=== PATIENT | female | born 1955 | race African-American/Black ===

== ENCOUNTER 2024-07-02 05:31 | Day surgery (SDC) | payer OTHER ==
[2024-06-30 09:58] VITALS: BMI 33.5
[2024-07-02 10:01] LABS: BASO % 0.5 % (0-2.0); EOS % 0.1 % (0-4.5); HEMATOCRIT 40.9 % (32.4-45.2); HEMOGLOBIN 13.3 GM/dL (10.7-15.3); LYMPH % 16.1 % (8-40); MCH 25.4 pg (25.7-33.7); MCHC 32.6 g/dl (32.0-36.0); MEAN CELL VOLUME 78.2 fl (80-96); MEAN PLT VOLUME 8.4 fl (7.5-11.1); MONO % 0.9 % (3.8-10.2); NEUT % 82.4 % (42.8-82.8); PLATELET COUNT 308 10^3/uL (134-434); RBC 5.24 M/mm3 (3.60-5.2); RDW 15.8 % (11.6-15.6); WHITE BLOOD COUNT 4.6 K/mm3 (4.0-10.0)
[2024-07-02 10:06] LABS: INR 1.07 (0.83-1.09); PROTHROMBIN TIME (PATIENT) 12.1 SEC (9.7-13.0)
[2024-07-02 10:16] LABS: POTASSIUM 3.8 mmol/L (3.5-5.1)
[2024-07-02 10:18] LABS: ALBUMIN 3.8 g/dl (3.4-5.0); BLOOD UREA NITROGEN 16.4 mg/dL (7-18); MAGNESIUM 2.2 mg/dL (1.8-2.4)
[2024-07-02 10:21] LABS: CREATININE 1.2 mg/dL (0.55-1.3)
[2024-07-02 10:23] LABS: BILIRUBIN,TOTAL 0.4 mg/dL (0.2-1); TOT PROT 8.3 g/dl (6.4-8.2)
[2024-07-02] MEDS: SODIUM CHLORIDE 500 ML IV SCH (11:10)
[2024-07-02] MEDS ORDERED: FENTANYL CITRATE/PF 50 MCG/ML VIAL ONE ×2 (11:11→11:41)
[2024-07-02] MEDS ORDERED: MIDAZOLAM HCL 2 MG/2 ML SINGLE DOSE VIAL ONE (11:11)
[2024-07-02] MEDS: FENTANYL CITRATE/PF 50 MCG/ML VIAL IVPUSH ONE ×2 (11:34→11:44)
[2024-07-02] MEDS: MIDAZOLAM HCL 2 MG/2 ML SINGLE DOSE VIAL IVPUSH ONE ×2 (11:34→11:44)
[2024-07-02] MEDS: FOSAPREPITANT DIMEGLUMINE 150 MG in SODIUM CHLORIDE 145 ML IVPB ONE (13:43)
[2024-07-02] MEDS: SODIUM CHLORIDE 250 ML IV ONE (13:43)
[2024-07-02] MEDS: PALONOSETRON HCL 0.25 MG/5 ML VIAL IVPUSH ONE (14:09)
[2024-07-02] MEDS: DEXAMETHASONE SODIUM PHOSPHATE 10 MG, DIPHENHYDRAMINE 25 MG in DEXTROSE 5%-WATER - 100 ML IVPB ONE (14:12)
[2024-07-02] MEDS: FAMOTIDINE 20 MG/50 ML IVPB 20 MG/50 ML MG IVPB ONE (14:49)
[2024-07-02] MEDS: SODIUM CHLORIDE IVPB ONE ×2 (15:21→20:40)
[2024-07-02] MEDS: PACLITAXEL IVPB ONE (15:21)
[2024-07-02] MEDS: ACETAMINOPHEN 325 MG TABLET (FP) PO ONE (15:34)
[2024-07-02] MEDS: DEXAMETHASONE SOD PHOSPHATE 20 MG/5 ML VIAL IVPUSH ONE (16:25)
[2024-07-02] MEDS ORDERED: PORTA CATH FLUSH 10 ML IVPUSH PRN (18:56)
[2024-07-02] MEDS: INSULIN (NOVOLOG) ASPART 100 UNITS/ML 10ML VIAL SQ ONE (18:57)
[2024-07-02] MEDS: CARBOPLATIN IVPB ONE (20:40)
[2024-07-02 21:18] VITALS: BP 118/78; PULSE 84; RESP 18; TEMP 97.6
== END 2024-07-02 22:11 | disposition home or self-care (01) ==
LOC: JRADIR 05:31
PROVIDERS: ATTEND Internal Medicine Hematology & Oncology
PROC: 3E04305 Introduction of Other Antineoplastic into Central Vein, Percutaneous Approach (ICD-10-PCS; principal; 2024-07-02)
PROC: 3E043GC Introduction of Other Therapeutic Substance into Central Vein, Percutaneous Approach (ICD-10-PCS; 2024-07-02)
PROC: 0JH63WZ Insertion of Totally Implantable Vascular Access Device into Chest Subcutaneous Tissue and Fascia, Percutaneous Approach (ICD-10-PCS; 2024-07-02)
PROC: 02HV33Z Insertion of Infusion Device into Superior Vena Cava, Percutaneous Approach (ICD-10-PCS; 2024-07-02)
PROC: B518ZZA Fluoroscopy of Superior Vena Cava, Guidance (ICD-10-PCS; 2024-07-02)
DX: Z51.11 Encounter for antineoplastic chemotherapy (principal); C54.1 Malignant neoplasm of endometrium
CPT/HCPCS: 36561; 96367; 96375; 96413; 96415; C1788; 36415; 80053; 82150; 82962; 83690; 83735; 84439; 84443; 85025; 85610; 86705; 86707; 87350; 87517; J1453

== ENCOUNTER 2024-07-03 12:11 | Day surgery (SDC) | payer OTHER ==
[2024-07-03] MEDS: SODIUM CHLORIDE 500 ML IV ONE (12:35)
[2024-07-03 13:45] VITALS: RESP 18; TEMP 98.1
[2024-07-03] MEDS: PEMBROLIZUMAB 200 MG in SODIUM CHLORIDE 50 ML IV ONE (14:13)
[2024-07-03 15:30] VITALS: BP 126/82; PULSE 93
[2024-07-03] MEDS: PORTA CATH FLUSH 10 ML IVPUSH PRN (15:30)
== END 2024-07-03 16:00 | disposition home or self-care (01) ==
LOC: JONCCHEMO 12:11
PROVIDERS: ATTEND Internal Medicine Hematology & Oncology
DX: Z51.11 Encounter for antineoplastic chemotherapy (principal); C55 Malignant neoplasm of uterus, part unspecified
CPT/HCPCS: 96413; J9271

== ENCOUNTER 2024-07-17 13:30 | Day surgery (SDC) | payer OTHER ==
[2024-07-17] MEDS: TBO-FILGRASTIM 480 MCG/0.8 ML DISP.SYRIN SQ ONE (13:28)
[2024-07-17 17:31] VITALS: BP 109/64; PULSE 63; RESP 20; TEMP 98.2
== END 2024-07-17 13:40 | disposition home or self-care (01) ==
LOC: JONCCHEMO 13:30 → J7W 13:33 → JONCCHEMO 13:40
PROVIDERS: ATTEND Internal Medicine Hematology & Oncology
PROC: 3E013GC Introduction of Other Therapeutic Substance into Subcutaneous Tissue, Percutaneous Approach (ICD-10-PCS; principal; 2024-07-17)
DX: C55 Malignant neoplasm of uterus, part unspecified (principal); Z76.89 Persons encountering health services in other specified circumstances
CPT/HCPCS: 96372; J1447

== ENCOUNTER 2024-07-21 11:07 | Day surgery (SDC) | payer OTHER ==
[2024-07-21 10:12] LABS: HEMOGLOBIN 12.7 GM/dL (10.7-15.3); MCH 24.6 pg (25.7-33.7); MCHC 31.1 g/dl (32.0-36.0); MEAN CELL VOLUME 79.1 fl (80-96); MEAN PLT VOLUME 7.7 fl (7.5-11.1); PLATELET COUNT 257 10^3/uL (134-434); RBC 5.18 M/mm3 (3.60-5.2); RDW 16.3 % (11.6-15.6); WHITE BLOOD COUNT 11.1 K/mm3 (4.0-10.0)
[2024-07-21 10:32] LABS: CHLORIDE 108 mmol/L (98-107); POTASSIUM 3.7 mmol/L (3.5-5.1); SODIUM 141 mmol/L (136-145)
[2024-07-21 10:34] LABS: ALBUMIN 3.5 g/dl (3.4-5.0); CALCIUM 9.2 mg/dL (8.5-10.1)
[2024-07-21 10:35] LABS: AMYLASE 51 U/L (25-115); ANION GAP 8 mmol/L (4-13); BLOOD UREA NITROGEN 13.9 mg/dL (7-18); CO2 24 mmol/L (21-32); GLUCOSE,RANDOM 169 mg/dL (74-106); MAGNESIUM 2.2 mg/dL (1.8-2.4)
[2024-07-21 10:37] LABS: SGOT/AST 13 U/L (15-37); SGPT/ALT 18 U/L (13-61)
[2024-07-21 10:38] LABS: CREATININE 1.1 mg/dL (0.55-1.3)
[2024-07-21 10:39] LABS: BILIRUBIN,TOTAL 0.3 mg/dL (0.2-1); TOT PROT 7.4 g/dl (6.4-8.2)
[2024-07-21 10:40] LABS: ALK PHOS 121 U/L (45-117)
[2024-07-21 11:13] LABS: ANISOCYTOSIS 0; HELMET CELLS 0; HOWELL-JOLLY BODIES 0; MACROCYTOSIS 0; OVALOCYTE 0; ROULEAU 0; SICKELED CELLS 0; TARGET CELLS 0; TEAR DROP CELLS 0; TOXIC GRANULATION 0
[2024-07-21] MEDS: SODIUM CHLORIDE 250 ML IV ONE (11:52)
[2024-07-21] MEDS: FOSAPREPITANT DIMEGLUMINE 150 MG in SODIUM CHLORIDE 145 ML IVPB ONE (11:53)
[2024-07-21] MEDS: DEXAMETHASONE SODIUM PHOSPHATE 10 MG, DIPHENHYDRAMINE 25 MG in SODIUM CHLORIDE 100 ML IVPB ONE (12:34)
[2024-07-21] MEDS: PALONOSETRON HCL 0.25 MG/5 ML VIAL IVPUSH ONE (12:34)
[2024-07-21] MEDS: FAMOTIDINE 20 MG/50 ML IVPB 20 MG/50 ML MG IVPB ONE (13:15)
[2024-07-21] MEDS: INSULIN (NOVOLOG) ASPART 100 UNITS/ML 10ML VIAL SQ ONE (13:15)
[2024-07-21] MEDS: PACLITAXEL IVPB ONE (14:06)
[2024-07-21] MEDS: SODIUM CHLORIDE IVPB ONE ×2 (14:06→17:27)
[2024-07-21 16:45] VITALS: TEMP 98
[2024-07-21] MEDS: CARBOPLATIN IVPB ONE (17:27)
[2024-07-21] MEDS: PORTA CATH FLUSH 10 ML IVPUSH PRN (18:05)
[2024-07-21 18:14] VITALS: BP 140/94; PULSE 100; RESP 16
== END 2024-07-21 18:14 | disposition home or self-care (01) ==
LOC: JONCCHEMO 11:07 → J7W 11:08 → JONCCHEMO 18:14
PROVIDERS: ATTEND Internal Medicine Hematology & Oncology
DX: Z51.11 Encounter for antineoplastic chemotherapy (principal); C55 Malignant neoplasm of uterus, part unspecified
CPT/HCPCS: 36415; 80053; 82150; 82533; 83690; 83735; 84439; 84443; 85025; 86705; 87340; 87517; 96367; 96375; 96413; 96415; 96417; J1453

== ENCOUNTER 2024-07-22 13:00 | Day surgery (SDC) | payer OTHER ==
[2024-07-22] MEDS: SODIUM CHLORIDE 500 ML IV ONE (13:33)
[2024-07-22] MEDS: PEMBROLIZUMAB 200 MG in SODIUM CHLORIDE 100 ML IV ONE (14:08)
[2024-07-22 19:13] VITALS: RESP 20; TEMP 97.9
[2024-07-22] MEDS ORDERED: PORTA CATH FLUSH 10 ML IVPUSH PRN (19:18)
[2024-07-22 19:19] VITALS: BP 144/93; PULSE 81
== END 2024-07-22 15:35 | disposition home or self-care (01) ==
LOC: JONCCHEMO 13:00 → J7W 13:00 → JONCCHEMO 15:35
PROVIDERS: ATTEND Internal Medicine Hematology & Oncology
DX: Z51.11 Encounter for antineoplastic chemotherapy (principal); C55 Malignant neoplasm of uterus, part unspecified
CPT/HCPCS: 96413; J9271

== ENCOUNTER 2024-08-06 10:58 | Day surgery (SDC) | payer OTHER ==
[2024-08-06] MEDS: TBO-FILGRASTIM 480 MCG/0.8 ML DISP.SYRIN SQ ONE (11:00)
[2024-08-06 11:18] VITALS: BP 129/88; PULSE 111; RESP 20; TEMP 98.5
== END 2024-08-06 11:10 | disposition home or self-care (01) ==
LOC: JONCNONCHE 10:58 → J7W 11:01 → JONCNONCHE 11:10
PROVIDERS: ATTEND Internal Medicine Hematology & Oncology
PROC: 3E013GC Introduction of Other Therapeutic Substance into Subcutaneous Tissue, Percutaneous Approach (ICD-10-PCS; principal; 2024-08-06)
DX: C54.1 Malignant neoplasm of endometrium (principal); Z76.89 Persons encountering health services in other specified circumstances
CPT/HCPCS: 96372; J1447

== ENCOUNTER 2024-08-07 11:00 | Day surgery (SDC) | payer OTHER ==
[~2024-08-07 11:00] MED LIST: TBO-FILGRASTIM 480 MCG/0.8 ML DISP.SYRIN SQ ONE
[2024-08-07] MEDS: TBO-FILGRASTIM 480 MCG/0.8 ML DISP.SYRIN SQ ONE (11:01)
[2024-08-07 15:39] VITALS: BP 150/84; PULSE 79; RESP 20; TEMP 98
== END 2024-08-07 11:10 | disposition home or self-care (01) ==
LOC: JONCNONCHE 11:00 → J7W 11:02 → JONCNONCHE 11:10
PROVIDERS: ATTEND Internal Medicine Hematology & Oncology
PROC: 3E013GC Introduction of Other Therapeutic Substance into Subcutaneous Tissue, Percutaneous Approach (ICD-10-PCS; principal; 2024-08-07)
DX: C54.1 Malignant neoplasm of endometrium (principal); D70.1 Agranulocytosis secondary to cancer chemotherapy
CPT/HCPCS: 96372; J1447

== ENCOUNTER 2024-08-10 12:00 | Day surgery (SDC) | payer OTHER ==
[2024-08-10] MEDS: TBO-FILGRASTIM 480 MCG/0.8 ML DISP.SYRIN SQ ONE (12:12)
[2024-08-10 13:23] VITALS: BP 141/91; PULSE 96; RESP 20; TEMP 98.8
== END 2024-08-10 12:25 | disposition home or self-care (01) ==
LOC: JONCCHEMO 12:00 → J7W 12:03 → JONCCHEMO 12:25
PROVIDERS: ATTEND Internal Medicine Hematology & Oncology
PROC: 3E013GC Introduction of Other Therapeutic Substance into Subcutaneous Tissue, Percutaneous Approach (ICD-10-PCS; principal; 2024-08-10)
DX: C54.1 Malignant neoplasm of endometrium (principal); D70.1 Agranulocytosis secondary to cancer chemotherapy
CPT/HCPCS: 96372; J1447

== ENCOUNTER 2024-08-12 10:45 | Day surgery (SDC) | payer OTHER ==
[2024-08-12 09:33] LABS: HEMATOCRIT 40.5 % (32.4-45.2); HEMOGLOBIN 12.6 GM/dL (10.7-15.3); MCH 24.4 pg (25.7-33.7); MCHC 31.2 g/dl (32.0-36.0); MEAN CELL VOLUME 78.3 fl (80-96); MEAN PLT VOLUME 8.2 fl (7.5-11.1); PLATELET COUNT 282 10^3/uL (134-434); RBC 5.17 M/mm3 (3.60-5.2); RDW 17.1 % (11.6-15.6); WHITE BLOOD COUNT 21.8 K/mm3 (4.0-10.0)
[2024-08-12 09:54] LABS: CHLORIDE 107 mmol/L (98-107); POTASSIUM 3.9 mmol/L (3.5-5.1); SODIUM 140 mmol/L (136-145)
[2024-08-12 09:56] LABS: ALBUMIN 3.7 g/dl (3.4-5.0); ANION GAP 7 mmol/L (4-13); CALCIUM 9.5 mg/dL (8.5-10.1); CO2 26 mmol/L (21-32); GLUCOSE,RANDOM 208 mg/dL (74-106); MAGNESIUM 1.8 mg/dL (1.8-2.4)
[2024-08-12 09:57] LABS: BLOOD UREA NITROGEN 14.6 mg/dL (7-18)
[2024-08-12 10:00] LABS: CREATININE 1.2 mg/dL (0.55-1.3); SGOT/AST 16 U/L (15-37); SGPT/ALT 20 U/L (13-61)
[2024-08-12 10:01] LABS: BILIRUBIN,TOTAL 0.3 mg/dL (0.2-1); TOT PROT 7.7 g/dl (6.4-8.2)
[2024-08-12 10:02] LABS: ALK PHOS 164 U/L (45-117)
[2024-08-12 10:46] LABS: ANISOCYTOSIS 0; MACROCYTOSIS 0
[2024-08-12] MEDS: SODIUM CHLORIDE 250 ML IV ONE (11:00)
[2024-08-12] MEDS: FOSAPREPITANT DIMEGLUMINE 150 MG in SODIUM CHLORIDE 145 ML IVPB ONE (11:40)
[2024-08-12] MEDS: DEXAMETHASONE SODIUM PHOSPHATE 10 MG, DIPHENHYDRAMINE 25 MG in SODIUM CHLORIDE 100 ML IVPB ONE (12:15)
[2024-08-12] MEDS: FAMOTIDINE 20 MG/50 ML IVPB 20 MG/50 ML MG IVPB ONE (12:50)
[2024-08-12] MEDS: PALONOSETRON HCL 0.25 MG/5 ML VIAL IVPUSH ONE (12:50)
[2024-08-12] MEDS: SODIUM CHLORIDE 0.9% IVPB ONE (13:18)
[2024-08-12] MEDS: PACLITAXEL IVPB ONE (13:18)
[2024-08-12] MEDS ORDERED: INSULIN ASPART SLIDING SCALE (NOVOLOG) 1 VIAL SQ ONE ×2 (14:21→14:26)
[2024-08-12] MEDS: INSULIN (NOVOLOG) ASPART 100 UNITS/ML 10ML VIAL SQ ONE (14:22)
[2024-08-12] MEDS: SODIUM CHLORIDE IVPB ONE (16:29)
[2024-08-12] MEDS: CARBOPLATIN IVPB ONE (16:29)
[2024-08-12 16:37] VITALS: TEMP 98.7
[2024-08-12 17:31] VITALS: BP 136/88; PULSE 98; RESP 20
[2024-08-12] MEDS: PORTA CATH FLUSH 10 ML IVPUSH PRN (17:32)
== END 2024-08-12 18:00 | disposition home or self-care (01) ==
LOC: JONCCHEMO 10:45 → J7W 10:47 → JONCCHEMO 18:00
PROVIDERS: ATTEND Internal Medicine Hematology & Oncology
DX: Z51.11 Encounter for antineoplastic chemotherapy (principal); C54.1 Malignant neoplasm of endometrium; D70.1 Agranulocytosis secondary to cancer chemotherapy
CPT/HCPCS: 36415; 80053; 82150; 82533; 83690; 83735; 84439; 84443; 85025; 96367; 96375; 96413; 96415; 96417; J1453

== ENCOUNTER 2024-08-13 10:29 | Day surgery (SDC) | payer OTHER ==
[2024-08-13] MEDS: SODIUM CHLORIDE 500 ML IV ONE (11:05)
[2024-08-13] MEDS: PEMBROLIZUMAB 200 MG in SODIUM CHLORIDE 50 ML IV ONE (11:42)
[2024-08-13] MEDS: PORTA CATH FLUSH 10 ML IVPUSH PRN (13:35)
[2024-08-13 16:12] VITALS: TEMP 97.8
[2024-08-13 16:18] VITALS: BP 130/91; PULSE 104; RESP 18
== END 2024-08-13 14:00 | disposition home or self-care (01) ==
LOC: JONCCHEMO 10:29 → J7W 10:31 → JONCCHEMO 14:00
PROVIDERS: ATTEND Internal Medicine Hematology & Oncology
DX: Z51.11 Encounter for antineoplastic chemotherapy (principal); C54.1 Malignant neoplasm of endometrium
CPT/HCPCS: 96413; J9271

== ENCOUNTER 2024-08-14 11:25 | Day surgery (SDC) | payer OTHER ==
[2024-08-14] MEDS: TBO-FILGRASTIM 480 MCG/0.8 ML DISP.SYRIN SQ ONE (11:39)
[2024-08-14 18:20] VITALS: BP 147/93; PULSE 102; RESP 16; TEMP 98
== END 2024-08-14 11:50 | disposition home or self-care (01) ==
LOC: J7W 11:25 → JONCCHEMO 11:25
PROVIDERS: ATTEND Internal Medicine Hematology & Oncology
PROC: 3E013GC Introduction of Other Therapeutic Substance into Subcutaneous Tissue, Percutaneous Approach (ICD-10-PCS; principal; 2024-08-14)
DX: C54.1 Malignant neoplasm of endometrium (principal); Z76.89 Persons encountering health services in other specified circumstances
CPT/HCPCS: 96372; J1447

== ENCOUNTER 2024-08-17 11:02 | Day surgery (SDC) | payer OTHER ==
[2024-08-17] MEDS: TBO-FILGRASTIM 480 MCG/0.8 ML DISP.SYRIN SQ ONE (11:03)
[2024-08-17 15:24] VITALS: BP 125/81; PULSE 111; RESP 20; TEMP 98.9
== END 2024-08-17 11:20 | disposition home or self-care (01) ==
LOC: JONCCHEMO 11:02 → J7W 11:03 → JONCCHEMO 11:20
PROVIDERS: ATTEND Internal Medicine Hematology & Oncology
PROC: 3E013GC Introduction of Other Therapeutic Substance into Subcutaneous Tissue, Percutaneous Approach (ICD-10-PCS; principal; 2024-08-17)
DX: C54.1 Malignant neoplasm of endometrium (principal); Z76.89 Persons encountering health services in other specified circumstances
CPT/HCPCS: 96372; J1447

== ENCOUNTER 2024-08-18 11:25 | Day surgery (SDC) | payer OTHER ==
[2024-08-18] MEDS: TBO-FILGRASTIM 480 MCG/0.8 ML DISP.SYRIN SQ ONE (11:36)
[2024-08-18 17:25] VITALS: BP 108/72; PULSE 113; RESP 20; TEMP 98.4
== END 2024-08-18 11:50 | disposition home or self-care (01) ==
LOC: JONCCHEMO 11:25 → J7W 11:27 → JONCCHEMO 11:50
PROVIDERS: ATTEND Internal Medicine Hematology & Oncology
PROC: 3E013GC Introduction of Other Therapeutic Substance into Subcutaneous Tissue, Percutaneous Approach (ICD-10-PCS; principal; 2024-08-18)
DX: C54.1 Malignant neoplasm of endometrium (principal); Z76.89 Persons encountering health services in other specified circumstances
CPT/HCPCS: 96372; J1447

== ENCOUNTER 2024-08-31 09:50 | Day surgery (SDC) | payer OTHER ==
[2024-08-31 10:21] LABS: BASO % 0.4 % (0-2.0); EOS % 0.1 % (0-4.5); HEMOGLOBIN 12.5 GM/dL (10.7-15.3); LYMPH % 12.5 % (8-40); MCH 24.9 pg (25.7-33.7); MEAN CELL VOLUME 77.7 fl (80-96); MEAN PLT VOLUME 8.2 fl (7.5-11.1); MONO % 0.8 % (3.8-10.2); NEUT % 86.2 % (42.8-82.8); PLATELET COUNT 338 10^3/uL (134-434); RBC 5.02 M/mm3 (3.60-5.2); RDW 19.5 % (11.6-15.6); WHITE BLOOD COUNT 6.1 K/mm3 (4.0-10.0)
[2024-08-31 10:46] LABS: CHLORIDE 108 mmol/L (98-107); POTASSIUM 3.8 mmol/L (3.5-5.1); SODIUM 141 mmol/L (136-145)
[2024-08-31 10:48] LABS: CALCIUM 9.8 mg/dL (8.5-10.1); GLUCOSE,RANDOM 197 mg/dL (74-106)
[2024-08-31 10:49] LABS: ALBUMIN 3.5 g/dl (3.4-5.0); ANION GAP 8 mmol/L (4-13); BLOOD UREA NITROGEN 15.3 mg/dL (7-18); CO2 25 mmol/L (21-32)
[2024-08-31 10:50] LABS: AMYLASE 57 U/L (25-115)
[2024-08-31 10:51] LABS: SGPT/ALT 16 U/L (13-61)
[2024-08-31 10:52] LABS: CREATININE 1.2 mg/dL (0.55-1.3); SGOT/AST 10 U/L (15-37)
[2024-08-31 10:53] LABS: BILIRUBIN,TOTAL 0.3 mg/dL (0.2-1); TOT PROT 7.6 g/dl (6.4-8.2)
[2024-08-31 10:54] LABS: ALK PHOS 119 U/L (45-117)
[2024-08-31] MEDS: SODIUM CHLORIDE 250 ML IV ONE (11:40)
[2024-08-31] MEDS: FOSAPREPITANT DIMEGLUMINE 150 MG in SODIUM CHLORIDE 145 ML IVPB ONE (11:54)
[2024-08-31] MEDS: PALONOSETRON HCL 0.25 MG/5 ML VIAL IVPUSH ONE (12:35)
[2024-08-31] MEDS: DEXAMETHASONE SODIUM PHOSPHATE 10 MG, DIPHENHYDRAMINE 25 MG in SODIUM CHLORIDE 100 ML IVPB ONE (12:38)
[2024-08-31] MEDS: INSULIN (NOVOLOG) ASPART 100 UNITS/ML 10ML VIAL SQ ONE (12:39)
[2024-08-31] MEDS: FAMOTIDINE 20 MG/50 ML IVPB 20 MG/50 ML MG IVPB ONE (13:10)
[2024-08-31] MEDS: PACLITAXEL 300 MG in SODIUM CHLORIDE 500 ML IVPB ONE (13:45)
[2024-08-31 15:33] VITALS: RESP 20; TEMP 98.4
[2024-08-31] MEDS: SODIUM CHLORIDE IVPB ONE (16:58)
[2024-08-31] MEDS: CARBOPLATIN IVPB ONE (16:58)
[2024-08-31 17:45] VITALS: BP 147/92; PULSE 95
[2024-08-31] MEDS: PORTA CATH FLUSH 10 ML IVPUSH PRN ×2 (17:46)
== END 2024-08-31 18:18 | disposition home or self-care (01) ==
LOC: JONCCHEMO 09:50 → J7W 09:51 → JONCCHEMO 18:18
PROVIDERS: ATTEND Internal Medicine Hematology & Oncology
DX: Z51.11 Encounter for antineoplastic chemotherapy (principal); C54.1 Malignant neoplasm of endometrium
CPT/HCPCS: 36415; 80053; 82150; 82533; 83690; 83735; 84439; 84443; 85025; 96367; 96375; 96413; 96417; J1453

== ENCOUNTER 2024-09-01 10:57 | Day surgery (SDC) | payer OTHER ==
[2024-09-01] MEDS: SODIUM CHLORIDE 500 ML IV ONE (11:05)
[2024-09-01] MEDS: PEMBROLIZUMAB 200 MG in SODIUM CHLORIDE 100 ML IVPB ONE (12:16)
[2024-09-01 12:24] VITALS: TEMP 98.3
[2024-09-01] MEDS: PORTA CATH FLUSH 10 ML IVPUSH PRN (12:50)
[2024-09-01 14:02] VITALS: BP 120/91; PULSE 106; RESP 20
== END 2024-09-01 13:00 | disposition home or self-care (01) ==
LOC: JONCCHEMO 10:57 → J7W 11:00 → JONCCHEMO 13:00
PROVIDERS: ATTEND Internal Medicine Hematology & Oncology
DX: Z51.11 Encounter for antineoplastic chemotherapy (principal); C54.1 Malignant neoplasm of endometrium
CPT/HCPCS: 96413; J9271

== ENCOUNTER 2024-10-14 11:54 | Day surgery (SDC) | payer OTHER ==
[2024-10-14 11:36] LABS: BASO % 0.5 % (0-2.0); HEMATOCRIT 39.4 % (32.4-45.2); HEMOGLOBIN 12.8 GM/dL (10.7-15.3); LYMPH % 13.8 % (8-40); MCHC 32.5 g/dl (32.0-36.0); MEAN PLT VOLUME 8.2 fl (7.5-11.1); MONO % 1.2 % (3.8-10.2); NEUT % 84.5 % (42.8-82.8); PLATELET COUNT 293 10^3/uL (134-434); RBC 4.92 M/mm3 (3.60-5.2); RDW 20.5 % (11.6-15.6); WHITE BLOOD COUNT 7.4 K/mm3 (4.0-10.0)
[2024-10-14 11:59] LABS: CHLORIDE 105 mmol/L (98-107); POTASSIUM 3.5 mmol/L (3.5-5.1); SODIUM 141 mmol/L (136-145)
[2024-10-14 12:02] LABS: ALBUMIN 3.7 g/dl (3.4-5.0); ANION GAP 13 mmol/L (4-13); BLOOD UREA NITROGEN 13.4 mg/dL (7-18); CALCIUM 9.7 mg/dL (8.5-10.1); CO2 22 mmol/L (21-32); GLUCOSE,RANDOM 185 mg/dL (74-106); MAGNESIUM 1.8 mg/dL (1.8-2.4)
[2024-10-14 12:04] LABS: SGOT/AST 18 U/L (15-37); SGPT/ALT 25 U/L (13-61)
[2024-10-14 12:05] LABS: CREATININE 1.2 mg/dL (0.55-1.3)
[2024-10-14 12:06] LABS: BILIRUBIN,TOTAL 0.3 mg/dL (0.2-1); TOT PROT 7.4 g/dl (6.4-8.2)
[2024-10-14 12:07] LABS: ALK PHOS 102 U/L (45-117)
[2024-10-14] MEDS: FOSAPREPITANT DIMEGLUMINE 150 MG in SODIUM CHLORIDE 145 ML IVPB ONE (12:50)
[2024-10-14] MEDS: SODIUM CHLORIDE 250 ML IV ONE (12:50)
[2024-10-14 13:05] LABS: ANISOCYTOSIS 1+
[2024-10-14] MEDS: PALONOSETRON HCL 0.25 MG/5 ML VIAL IVPUSH ONE (13:22)
[2024-10-14] MEDS: DEXAMETHASONE SODIUM PHOSPHATE 10 MG, DIPHENHYDRAMINE 25 MG in SODIUM CHLORIDE 100 ML IVPB ONE (13:22)
[2024-10-14] MEDS: FAMOTIDINE 20 MG/50 ML IVPB 20 MG/50 ML MG IVPB ONE (14:05)
[2024-10-14] MEDS ORDERED: INSULIN ASPART SLIDING SCALE (NOVOLOG) 1 VIAL SQ ONE (14:06)
[2024-10-14] MEDS: INSULIN (NOVOLOG) ASPART 100 UNITS/ML 10ML VIAL SQ ONE (14:09)
[2024-10-14] MEDS: PACLITAXEL 300 MG in SODIUM CHLORIDE 500 ML IVPB ONE (14:23)
[2024-10-14 16:56] VITALS: RESP 20; TEMP 98.1
[2024-10-14] MEDS: CARBOPLATIN IVPB ONE (17:30)
[2024-10-14] MEDS: SODIUM CHLORIDE IVPB ONE (17:30)
[2024-10-14] MEDS: PORTA CATH FLUSH 10 ML IVPUSH PRN (17:31)
[2024-10-14 18:19] VITALS: BP 131/84; PULSE 103
== END 2024-10-14 18:30 | disposition home or self-care (01) ==
LOC: JONCCHEMO 11:54
PROVIDERS: ATTEND Internal Medicine Hematology & Oncology
DX: Z51.11 Encounter for antineoplastic chemotherapy (principal); C54.1 Malignant neoplasm of endometrium
CPT/HCPCS: 36415; 80053; 82150; 82533; 83690; 83735; 84439; 84443; 85025; 96367; 96375; 96413; 96415; 96417; J1453

== ENCOUNTER 2024-10-15 10:23 | Day surgery (SDC) | payer OTHER ==
[2024-10-15] MEDS: SODIUM CHLORIDE 500 ML IV ONE (10:49)
[2024-10-15] MEDS: PEMBROLIZUMAB 200 MG in SODIUM CHLORIDE 100 ML IVPB ONE (11:11)
[2024-10-15] MEDS: PORTA CATH FLUSH 10 ML IVPUSH PRN (12:50)
[2024-10-15 16:11] VITALS: RESP 20; TEMP 97.6
[2024-10-15 16:18] VITALS: BP 125/77; PULSE 98
== END 2024-10-15 13:00 | disposition home or self-care (01) ==
LOC: JONCCHEMO 10:23 → J7W 10:24 → JONCCHEMO 13:00
PROVIDERS: ATTEND Internal Medicine Hematology & Oncology
PROC: 3E04305 Introduction of Other Antineoplastic into Central Vein, Percutaneous Approach (ICD-10-PCS; principal; 2024-10-15)
PROC: 3E0437Z Introduction of Electrolytic and Water Balance Substance into Central Vein, Percutaneous Approach (ICD-10-PCS; 2024-10-15)
DX: Z51.11 Encounter for antineoplastic chemotherapy (principal); C54.1 Malignant neoplasm of endometrium
CPT/HCPCS: 96366; 96367; 96413; J9271

== ENCOUNTER 2024-11-04 10:08 | Day surgery (SDC) | payer OTHER ==
[2024-11-04 11:06] LABS: BASO % 0.4 % (0-2.0); EOS % 0.8 % (0-4.5); HEMATOCRIT 35.1 % (32.4-45.2); HEMOGLOBIN 11.4 GM/dL (10.7-15.3); LYMPH % 35.2 % (8-40); MCH 26.5 pg (25.7-33.7); MCHC 32.5 g/dl (32.0-36.0); MEAN CELL VOLUME 81.6 fl (80-96); MEAN PLT VOLUME 7.8 fl (7.5-11.1); MONO % 13.8 % (3.8-10.2); NEUT % 49.8 % (42.8-82.8); PLATELET COUNT 314 10^3/uL (134-434); RBC 4.31 M/mm3 (3.60-5.2); RDW 18.9 % (11.6-15.6); WHITE BLOOD COUNT 5.5 K/mm3 (4.0-10.0)
[2024-11-04 11:34] LABS: CHLORIDE 108 mmol/L (98-107); POTASSIUM 3.4 mmol/L (3.5-5.1); SODIUM 143 mmol/L (136-145)
[2024-11-04 11:36] LABS: ANION GAP 8 mmol/L (4-13); BLOOD UREA NITROGEN 11.6 mg/dL (7-18); CALCIUM 8.9 mg/dL (8.5-10.1); CO2 27 mmol/L (21-32); GLUCOSE,RANDOM 97 mg/dL (74-106); MAGNESIUM 1.8 mg/dL (1.8-2.4)
[2024-11-04 11:37] LABS: ALBUMIN 3.5 g/dl (3.4-5.0)
[2024-11-04 11:39] LABS: CREATININE 0.9 mg/dL (0.55-1.3); SGOT/AST 14 U/L (15-37); SGPT/ALT 15 U/L (13-61)
[2024-11-04 11:41] LABS: BILIRUBIN,TOTAL 0.4 mg/dL (0.2-1); TOT PROT 6.7 g/dl (6.4-8.2)
[2024-11-04 11:59] LABS: ALK PHOS 75 U/L (45-117)
[2024-11-04] MEDS: SODIUM CHLORIDE 500 ML IV ONE (12:49)
[2024-11-04] MEDS: PEMBROLIZUMAB 200 MG in SODIUM CHLORIDE 100 ML IVPB ONE (12:50)
[2024-11-04] MEDS: POTASSIUM CHLORIDE TABS 20 MEQ TABLET.ER (FP) PO ONE (13:10)
[2024-11-04] MEDS: PORTA CATH FLUSH 10 ML IVPUSH PRN (14:55)
[2024-11-05 09:16] VITALS: RESP 18; TEMP 98
[2024-11-05 09:26] VITALS: BP 127/82; PULSE 75
== END 2024-11-04 15:30 | disposition home or self-care (01) ==
LOC: JONCCHEMO 10:08 → J7W 10:33 → JONCCHEMO 15:30
PROVIDERS: ATTEND Internal Medicine Hematology & Oncology
PROC: 3E04305 Introduction of Other Antineoplastic into Central Vein, Percutaneous Approach (ICD-10-PCS; principal; 2024-11-04)
PROC: 3E0437Z Introduction of Electrolytic and Water Balance Substance into Central Vein, Percutaneous Approach (ICD-10-PCS; 2024-11-04)
DX: Z51.11 Encounter for antineoplastic chemotherapy (principal); C54.1 Malignant neoplasm of endometrium
CPT/HCPCS: 36415; 80053; 82150; 82533; 82728; 83540; 83550; 83690; 83735; 84439; 84443; 85025; 86304; 93970-TC; 96365; 96366; 96413; J9271

== ENCOUNTER 2024-11-25 10:03 | Day surgery (SDC) | payer OTHER ==
[2024-11-25 10:29] LABS: ABSOLUTE IMMATURE GRANULOCYTES 0.04 x10^3/uL (0.0-0.031); BASOPHILS # 0.04 x10^3/uL (0.01-0.08); EOSINOPHILS # 0.11 x10^3/uL (0.04-0.36); HEMOGLOBIN 11.3 g/dL (11.2-15.7); MCHC 30.5 g/dl (32.2-35.5); MEAN PLT VOLUME 10.4 fl (9.4-12.3); MONOCYTE # 0.61 x10^3/uL (0.24-0.86); MONOCYTE % 10.9 % (4.7-12.5); PLATELET COUNT 254 x10^3/uL (182-369); RDW 16.5 % (12.4-16.4)
[2024-11-25] MEDS: SODIUM CHLORIDE 500 ML IV ONE (10:30)
[2024-11-25 10:50] LABS: CHLORIDE 109 mmol/L (98-107); POTASSIUM 3.5 mmol/L (3.5-5.1); SODIUM 142 mmol/L (136-145)
[2024-11-25 10:52] LABS: ANION GAP 6 mmol/L (4-13); BLOOD UREA NITROGEN 14.6 mg/dL (7-18); CALCIUM 8.6 mg/dL (8.5-10.1); CO2 27 mmol/L (21-32); GLUCOSE,RANDOM 102 mg/dL (74-106); MAGNESIUM 1.9 mg/dL (1.8-2.4)
[2024-11-25 10:53] LABS: ALBUMIN 3.4 g/dl (3.4-5.0)
[2024-11-25 10:55] LABS: SGOT/AST 11 U/L (15-37); SGPT/ALT 15 U/L (13-61)
[2024-11-25 10:57] LABS: BILIRUBIN,TOTAL 0.4 mg/dL (0.2-1); TOT PROT 6.8 g/dl (6.4-8.2)
[2024-11-25 10:58] LABS: ALK PHOS 84 U/L (45-117)
[2024-11-25] MEDS: PEMBROLIZUMAB 200 MG in SODIUM CHLORIDE 100 ML IVPB ONE (11:32)
[2024-11-25 12:36] VITALS: RESP 16; TEMP 98.3
[2024-11-25 12:40] VITALS: BP 118/80; PULSE 90
[2024-11-25] MEDS ORDERED: PORTA CATH FLUSH 10 ML IVPUSH PRN (12:40)
== END 2024-11-25 12:30 | disposition home or self-care (01) ==
LOC: JONCCHEMO 10:03
PROVIDERS: ATTEND Internal Medicine Hematology & Oncology
DX: Z51.12 Encounter for antineoplastic immunotherapy (principal)
CPT/HCPCS: 36415; 80053; 82150; 82533; 83690; 83735; 84439; 84443; 85025; 96413; J9271

== ENCOUNTER 2024-12-16 11:47 | Day surgery (SDC) | payer OTHER ==
[2024-12-16] MEDS: SODIUM CHLORIDE 500 ML IV ONE (11:40)
[2024-12-16] MEDS: PEMBROLIZUMAB 200 MG in SODIUM CHLORIDE 100 ML IVPB ONE (13:06)
[2024-12-16] MEDS: PORTA CATH FLUSH 10 ML IVPUSH PRN (13:45)
[2024-12-16 15:40] VITALS: RESP 20; TEMP 97.8
[2024-12-16 15:43] VITALS: BP 117/83; PULSE 98
== END 2024-12-16 13:45 | disposition home or self-care (01) ==
LOC: JONCCHEMO 11:47 → J7W 11:58 → JONCCHEMO 13:45
PROVIDERS: ATTEND Internal Medicine Hematology & Oncology
DX: Z51.11 Encounter for antineoplastic chemotherapy (principal); C54.1 Malignant neoplasm of endometrium
CPT/HCPCS: 96361; 96413; J9271

== ENCOUNTER 2025-03-03 11:15 | Day surgery (SDC) | payer OTHER ==
[~2025-03-03 11:15] MED LIST changes: +PEMBROLIZUMAB 200 MG in SODIUM CHLORIDE 100 ML IVPB ONE; +SODIUM CHLORIDE 500 ML IV ONE; -TBO-FILGRASTIM 480 MCG/0.8 ML DISP.SYRIN SQ ONE
[2025-03-03 11:29] LABS: ABSOLUTE IMMATURE GRANULOCYTES 0.02 x10^3/uL (0.0-0.031); BASOPHILS # 0.04 x10^3/uL (0.01-0.08); EOSINOPHIL % 1.9 % (0.7-5.8); EOSINOPHILS # 0.09 x10^3/uL (0.04-0.36); MCHC 30.6 g/dl (32.2-35.5); MEAN CELL VOLUME 83.6 fl (79.4-94.8); MEAN PLT VOLUME 10.8 fl (9.4-12.3); MONOCYTE # 0.56 x10^3/uL (0.24-0.86); MONOCYTE % 12.0 % (4.7-12.5); RDW 15.7 % (12.4-16.4)
[2025-03-03 12:09] LABS: CO2 26 mmol/L (21-32)
[2025-03-03 12:10] LABS: GLUCOSE,RANDOM 106 mg/dL (74-106); SGOT/AST 15 U/L (15-37); SGPT/ALT 20 U/L (13-61)
[2025-03-03 12:11] LABS: CREATININE 1.0 mg/dL (0.55-1.3)
[2025-03-03 12:12] LABS: TOT PROT 6.9 g/dl (6.4-8.2)
[2025-03-03 12:13] LABS: ALK PHOS 99 U/L (45-117)
[2025-03-03] MEDS: SODIUM CHLORIDE 500 ML IV ONE (12:13)
[2025-03-03] MEDS: PEMBROLIZUMAB 200 MG in SODIUM CHLORIDE 100 ML IVPB ONE (13:24)
[2025-03-03] MEDS: PORTA CATH FLUSH 10 ML IVPUSH PRN (15:15)
[2025-03-03 18:46] VITALS: PULSE 75; RESP 20; TEMP 98.1
[2025-03-03 18:48] VITALS: BP 117/72
== END 2025-03-03 15:30 | disposition home or self-care (01) ==
LOC: JONCCHEMO 11:15 → J7W 11:16 → JONCCHEMO 15:30
PROVIDERS: ATTEND Internal Medicine Hematology & Oncology
DX: Z51.11 Encounter for antineoplastic chemotherapy (principal); C54.1 Malignant neoplasm of endometrium
CPT/HCPCS: 36415; 80053; 82150; 82533; 83690; 83735; 84439; 84443; 85025; 86304; 96413; J9271

== ENCOUNTER 2025-06-16 11:51 | Day surgery (SDC) | payer OTHER ==
[2025-06-16 12:11] LABS: ABSOLUTE IMMATURE GRANULOCYTES 0.03 x10^3/uL (0.0-0.031); BASOPHILS # 0.04 x10^3/uL (0.01-0.08); EOSINOPHIL % 1.3 % (0.7-5.8); EOSINOPHILS # 0.07 x10^3/uL (0.04-0.36); MCHC 31.5 g/dl (32.2-35.5); MEAN CELL VOLUME 82.1 fl (79.4-94.8); MEAN PLT VOLUME 10.1 fl (9.4-12.3); MONOCYTE # 0.52 x10^3/uL (0.24-0.86); MONOCYTE % 9.6 % (4.7-12.5); RDW 15.5 % (12.4-16.4)
[2025-06-16] MEDS: SODIUM CHLORIDE 500 ML IV ONE (12:26)
[2025-06-16 12:40] LABS: GLUCOSE,RANDOM 118 mg/dL (74-106); TOT PROT 7.5 g/dl (6.4-8.2)
[2025-06-16 12:41] LABS: CO2 24 mmol/L (21-32)
[2025-06-16 12:43] LABS: ALK PHOS 107 U/L (40-150)
[2025-06-16 12:45] LABS: SGOT/AST 21 U/L (5-34); SGPT/ALT 13 U/L (0-55)
[2025-06-16 12:46] LABS: CREATININE 0.99 mg/dL (0.55-1.3); IRON SERUM 73 ug/dL (50-175)
[2025-06-16 12:47] LABS: IRON SERUM 73 ug/dL (50-175)
[2025-06-16] MEDS: PEMBROLIZUMAB 200 MG in SODIUM CHLORIDE 100 ML IVPB ONE (13:35)
[2025-06-16 14:40] VITALS: BP 139/90; PULSE 112; RESP 18; TEMP 98.5
[2025-06-16] MEDS ORDERED: PORTA CATH FLUSH 10 ML IVPUSH PRN (15:25)
== END 2025-06-16 14:30 | disposition home or self-care (01) ==
LOC: JONCCHEMO 11:51 → J7W 11:52 → JONCCHEMO 14:30
PROVIDERS: ATTEND Internal Medicine Hematology & Oncology
DX: Z51.11 Encounter for antineoplastic chemotherapy (principal); C54.1 Malignant neoplasm of endometrium
CPT/HCPCS: 36415; 80053; 82150; 82533; 82728; 83540; 83550; 83690; 83735; 84439; 84443; 85025; 86304; 96413; J9271